=== PATIENT | female | born 1990 | race Caucasian/White ===

== ENCOUNTER 2020-09-03 15:40 | Outpatient (CLI) | payer OTHER, SELFPAY ==
[2020-09-03 15:52] LABS: Hematocrit 39.8 % (35.0-49.0); Hemoglobin 13.5 g/dL (12.0-15.0); Mean Corpuscular HGB Conc 33.9 g/dL (32.0-36.0); Mean Corpuscular Hemoglobin 30.5 pg (27.0-31.0); Mean Corpuscular Volume 89.8 fL (78.0-102.0); Mean Platelet Volume 12.8 fl (9.2-11.8); Platelet Count Result 209 K/mm3 (150-420); Red Blood Count 4.43 M/mm3 (4.20-5.40); Red Cell Distribution Width 11.9 % (11.6-14.4); White Blood Count 6.4 K/mm3 (4.8-10.8)
[2020-09-03 17:24] LABS: Alanine Aminotransferase 37 U/L (14-59); Albumin Level 4.3 g/dL (3.4-5.0); Alkaline Phosphatase 70 U/L (46-116); Anion Gap 12 mmol/L (8-16); Aspartate Amino Transferase 10 U/L (15-37); Bilirubin,Total 0.3 mg/dL (0.00-1.00); Blood Urea Nitrogen 8 mg/dL (7-18); Calcium 9.3 mg/dL (8.5-10.1); Carbon Dioxide 26 mmol/L (21-32); Chloride 104 mmol/L (98-108); Estimated Glomerular Filt Rate > 60; Glucose 84 mg/dL (70-99); Lactate Dehydrogenase 138 U/L (81-234); Osmolality Calculated 291 mOsm/kg (285-295); Potassium 4.2 mmol/L (3.5-5.1); Sodium 142 mmol/L (136-145)
== END 2020-09-03 15:41 | disposition home or self-care (01) ==
LOC: CHSLAB 15:44
PROVIDERS: PCP Family Medicine; Visit Provider Family Medicine
DX: R59.0 Localized enlarged lymph nodes (principal)
CPT/HCPCS: 36415; 80053; 83615; 85027

== ENCOUNTER 2020-09-07 09:51 | Outpatient (CLI) | payer OTHER, SELFPAY ==
--- NOTE | ~2020-09-07 | US_ITS ---
EXAMINATION: US soft tissue groin RT DATE: 09/07/2020 10:36 INDICATION: Localized enlarged right inguinal lymph nodes TECHNIQUE: Multiple grayscale and Doppler ultrasound images of the right groin were obtained. COMPARISON: None FINDINGS: There are 3 normal-sized right inguinal lymph nodes with central fatty girish which measure 3 mm, 3 mm and 5 mm in maximal short axis diameters. No abnormally enlarged lymph nodes or other abnormal masses or fluid collections identified. IMPRESSION: 1. Normal study with a few small right inguinal lymph nodes which are well within normal limits. Reviewed, dictated and finalized at location A. IMPRESSION: 1. Normal study with a few small right inguinal lymph nodes which are well with in normal limits.
== END 2020-09-07 09:52 | disposition home or self-care (01) ==
LOC: CHSIMG 09:53
PROVIDERS: PCP Family Medicine; Visit Provider Family Medicine
DX: R59.0 Localized enlarged lymph nodes (principal)
CPT/HCPCS: 76882

== ENCOUNTER 2021-05-28 09:49 | Outpatient (CLI) | payer OTHER, SELFPAY ==
--- NOTE | ~2021-05-28 | US_ITS ---
US breast RT limited DATE: 05/28/2021 10:31 INDICATION: Right breast lump TECHNIQUE: Real-time imaging targeted to the area of clinical complaint of right breast lump at 3:00 8 cm from nipple. COMPARISON: None FINDINGS: No suspicious mass or shadowing, cyst or other significant sonographic finding is noted at the area of clinical complaint at 3:00 8 cm from the nipple. IMPRESSION: BI-RADS Category 1: Negative Reviewed, dictated and finalized at [facility]. Reviewed, dictated and finalized at location A. [employer]
== END 2021-05-28 09:50 | disposition home or self-care (01) ==
LOC: CHSIMG 09:52
PROVIDERS: PCP Family Medicine; Visit Provider Family Medicine
DX: N63.10 Unspecified lump in the right breast, unspecified quadrant (principal)
CPT/HCPCS: 76642

== ENCOUNTER 2021-07-26 13:55 | Outpatient (NON) | payer OTHER, SELFPAY | END 2021-07-26 13:56 | disposition home or self-care (01) | LOC: CHSLAB 13:56 | PROVIDERS: Visit Provider Family Medicine | DX: D22.5 Melanocytic nevi of trunk (principal) | CPT/HCPCS: 88305; 88342 ==

== ENCOUNTER 2021-11-01 07:53 | Outpatient (CLI) | payer OTHER, SELFPAY ==
--- NOTE | ~2021-11-01 | CT_ITS ---
EXAMINATION: CT abdomen pelvis wo con DATE: 11/01/2021 08:09 INDICATION: checking for RT femoral or inginal hernia, pain RLQ x1.5yrs TECHNIQUE: Computed tomography (CT) of the abdomen and pelvis was performed without intravenous contr ast. Automated exposure control and iterative reconstruction technique were employed. The dose-length product was 376.16 mGy-cm. COMPARISON: None. FINDINGS: Lower thorax: Unremarkable Liver: Normal. Biliary/Gallbladder: Gallbladder is normal. No bile duct dilation. Pancreas: No mass or duct dilation. Spleen: Normal. Adrenals:No mass. Kidneys: No mass, stone, or hydronephrosis. GI tract: No small or large bowel dilation. Normal appendix. Mesentery/Peritoneum: No ascites, mass, or free air. Retroperitoneum: No mass. Pelvis: Bladder wall thickening. Enlarged uterus measuring 5.8 x 10.4 x 8.4 cm. Otherwise the pelvic organs are within normal limits. Soft Tissues: Soft tissues and body wall unremarkable. Bones: No acute osseous finding. IMPRESSION: No CT evidence of femoral or inguinal hernia. Bladder wall thickening as can be seen with cystitis. U terine enlargement. Differential includes fibroids, adenomyosis, or the following less common entitie s: myometrial or endometrial neoplasia, dilated endometrial cavity, uterine AVM, and pelvic congestio n syndrome. Recommend pelvic ultrasound for further evaluation. Reviewed, dictated and finalized at location K. IMPRESSION: No CT evidence of femoral or inguinal hernia. Bladder wall thickening as can be seen with cystitis. Uterine enlargement. Differential includes fibroids, adeno myosis, or the following less common entities: myometrial or endometrial neopla gerson, dilated endometrial cavity, uterine AVM, and pelvic congestion syndrome. R ecommend pelvic ultrasound for further evaluation.
== END 2021-11-01 07:54 | disposition home or self-care (01) ==
LOC: CHSIMG 07:54
PROVIDERS: PCP Family Medicine; Visit Provider Family Medicine
DX: R10.31 Right lower quadrant pain (principal)
CPT/HCPCS: 74176

== ENCOUNTER 2021-11-04 08:11 | Outpatient (CLI) | payer OTHER, SELFPAY ==
--- NOTE | ~2021-11-04 | US_ITS ---
EXAMINATION: US pelvic complete DATE: 11/04/2021 08:56 INDICATION: Abnormal CT. Comparison:CT dated 11/01/2021 TECHNIQUE: Multiple transabdominal and endovaginal sonographic images of the pelvis performed. FINDINGS: The uterus measures 11.6 x 7 x 5 cm. There is a complicated nabothian cyst measuring 2.3 x 1.8 x 1.7 cm. Of the cervix. The endometrial complex measures 5 mm. The right ovary measures 4.4 x 3.8 x 2.8 cm and the left ovary measures 3.8 x 1.7 x 3.4 cm. There ar e small follicles in each ovary. Normal doppler signal in both ovaries. There is no free fluid in the pelvis. There are no abnormal masses seen on either side. IMPRESSION: 1. Complicated nabothian cyst measuring up to 2.3 cm. Reviewed, dictated and finalized at location A.
== END 2021-11-04 08:12 | disposition home or self-care (01) ==
LOC: CHSIMG 08:12
PROVIDERS: PCP Family Medicine; Visit Provider Family Medicine
DX: R93.41 Abnormal radiologic findings on diagnostic imaging of renal pelvis, ureter, or bladder (principal); R87.9 Unspecified abnormal finding in specimens from female genital organs
CPT/HCPCS: 76856

== ENCOUNTER 2022-10-13 09:23 | Outpatient (CLI) | payer OTHER, SELFPAY ==
[2022-10-13 09:50] LABS: Basophils Absolute Auto 0.04 K/mm3 (0.00-0.10); Basophils Percent Auto 0.7 % (0.0-1.0); Eosinophils Absolute Auto 0.09 K/mm3 (0.02-0.50); Eosinophils Percent Auto 1.7 % (1.0-6.0); Hematocrit 40.3 % (35.0-49.0); Hemoglobin 13.3 g/dL (12.0-15.0); Immature Granulocyte Absolute 0.01 K/mm3 (0.00-0.00); Immature Granulocyte Percent A 0.2 % (0.0-0.0); Lymphocytes Absolute Auto 1.31 K/mm3 (1.10-4.50); Lymphocytes Percent Auto 24.2 % (18.0-42.0); Mean Corpuscular Hemoglobin 30.3 pg (27.0-31.0); Mean Corpuscular Volume 91.8 fL (78.0-102.0); Mean Platelet Volume 12.3 fl (9.2-11.8); Monocytes Absolute Auto 0.31 K/mm3 (0.10-0.90); Monocytes Percent Auto 5.7 % (2.0-11.0); Neutrophils Absolute Auto 3.7 K/mm3 (1.7-7.2); Neutrophils Percent Auto 67.5 % (50.0-70.0); Platelet Count Result 178 K/mm3 (150-420); Red Blood Count 4.39 M/mm3 (4.20-5.40); Red Cell Distribution Width 11.9 % (11.6-14.4); White Blood Count 5.4 K/mm3 (4.8-10.8)
[2022-10-13 10:46] LABS: Alanine Aminotransferase 23 U/L (14-59); Albumin Level 4.1 g/dL (3.4-5.0); Alkaline Phosphatase 49 U/L (46-116); Anion Gap 7 mmol/L (8-16); Aspartate Amino Transferase < 10 U/L (15-37); Bilirubin,Total 0.3 mg/dL (0.00-1.00); Blood Urea Nitrogen 10 mg/dL (7-18); Calcium 9.1 mg/dL (8.5-10.1); Carbon Dioxide 28 mmol/L (21-32); Chloride 107 mmol/L (98-108); Estimated Glomerular Filt Rate > 60; Glucose 82 mg/dL (70-99); Osmolality Calculated 292 mOsm/kg (285-295); Potassium 4.3 mmol/L (3.5-5.1); Sodium 142 mmol/L (136-145); Total Protein 6.8 g/dL (6.4-8.2)
[2022-10-17 15:19] LABS: Cholesterol 152 mg/dL (0-200); HDL Direct 46 mg/dL (40-60); LDL Cholesterol Calculated 94 mg/dL (<130); Triglycerides 59 mg/dL (0-150)
[2022-10-18 00:26] LABS: Vitamin D 1,25 (OH)2 Total 20 pg/mL (18-72); Vitamin D2 1,25 (OH)2 <8 pg/mL; Vitamin D3 1,25 (OH)2 20 pg/mL
== END 2022-10-13 09:24 | disposition home or self-care (01) ==
LOC: CHSLAB 09:33
PROVIDERS: PCP Family Medicine; Visit Provider Family Medicine
DX: Z76.89 Persons encountering health services in other specified circumstances (principal); N92.0 Excessive and frequent menstruation with regular cycle
CPT/HCPCS: 36415; 80053; 80061; 82652; 85025

== ENCOUNTER 2023-07-31 12:53 | Outpatient (CLI) | payer OTHER, SELFPAY ==
--- NOTE | ~2023-07-31 | US_ITS ---
EXAMINATION: US soft tissue head and neck DATE: 07/31/2023 13:30 INDICATION: Localized enlarged lymph nodes. TECHNIQUE: Multiple grayscale and Doppler ultrasound images of the head and neck were obtained. COMPARISON: None. FINDINGS: There is no mass or abnormal lymphadenopathy in the patient's area of concern in right neck . IMPRESSION: 1. No mass or abnormal lymphadenopathy in the patient's area of concern in right neck. Reviewed, dictated and finalized at location A. IMPRESSION: 1. No mass or abnormal lymphadenopathy in the patient's area of concern in righ t neck.
== END 2023-07-31 12:54 | disposition home or self-care (01) ==
LOC: CHSIMG 12:56
PROVIDERS: PCP Family Medicine; Visit Provider Family Medicine
DX: R59.0 Localized enlarged lymph nodes (principal)
CPT/HCPCS: 76536

== ENCOUNTER 2023-09-12 14:54 | Outpatient (NON) | payer OTHER, SELFPAY | END 2023-09-12 14:55 | disposition home or self-care (01) | LOC: CHSLAB 14:56 | PROVIDERS: Visit Provider Family Medicine | DX: D22.4 Melanocytic nevi of scalp and neck (principal) | CPT/HCPCS: 88305 ==

== ENCOUNTER 2023-09-21 12:21 | Outpatient (NON) | payer OTHER, SELFPAY | END 2023-09-21 12:22 | disposition home or self-care (01) | LOC: CHSLAB 12:23 | PROVIDERS: Visit Provider Nurse Practitioner Family | DX: Z12.4 Encounter for screening for malignant neoplasm of cervix (principal); Z11.51 Encounter for screening for human papillomavirus (HPV); Z11.8 Encounter for screening for other infectious and parasitic diseases | CPT/HCPCS: 87491; 87591; 87624; 88175; G0145 ==